=== PATIENT | female | born 1950 | race Caucasian/White ===

== ENCOUNTER → 2018-10-04 | Outpatient (REF) | payer MEDICARE, OTHER | LOC: M LAB LCGH 10:47 | PROVIDERS: ATTEND Nurse Practitioner Family | DX: C44.629 Squamous cell carcinoma of skin of left upper limb, including shoulder (principal) ==

== ENCOUNTER → 2019-01-11 | Outpatient (REF) | LOC: M LAB LCGH 17:22 | PROVIDERS: ATTEND Surgery | DX: C44.622 Squamous cell carcinoma of skin of right upper limb, including shoulder (principal) ==

== ENCOUNTER → 2025-02-07 | Outpatient (REF) | payer MEDICARE, OTHER | LOC: M SFHCDERM 17:55 | PROVIDERS: ATTEND Nurse Practitioner Family | DX: D49.2 Neoplasm of unspecified behavior of bone, soft tissue, and skin (principal) ==